=== PATIENT | female | born 1975 | race Caucasian/White ===

== ENCOUNTER 2023-05-01 18:26 | Emergency (ER) | payer BC ==
[2023-05-01] MEDS ORDERED: ONDANSETRON 4 MG (ODT) TAB ONE (18:59)
[2023-05-01] MEDS ORDERED: IBUPROFEN 200 MG TAB PO ONE (19:34)
[2023-05-01] MEDS ORDERED: IBUPROFEN 400 MG TAB ONE (19:34)
--- NOTE | 2023-05-01 20:41 | EDPHYS ---
Physician Documentation [facility] Name: Clarke Hatch Age: 47 yrs Sex: Female : 1975 Arrival Date: 05/01/2023 Time: 18:26 Bed 9 Private MD: ED Physician Angelo Johnson HPI: 05/01 20:41 This 47 yrs old Female presents to ER via Ambulatory with complaints of Flu Symptoms. ms3 20:41 39-year-old female with past medical history of hypothyroidism presents for sinus ms3 congestion, sore throat, body aches, headache, nausea that began this morning. Patient rates her discomfort a 7/10 and describes the pain as aching. Patient denies alleviating or inciting factors. Patient states she has friends with similar symptoms. 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 Flu vaccine is not up to date. - Social history:: Smoking status: Patient/guardian denies using tobacco, but has a distant history of tobacco abuse, Patient/guardian denies using alcohol, street drugs. ROS: 20:41 ENT: Negative for injury, pain, and discharge, Neck: Negative for injury, pain, and ms3 swelling, Cardiovascular: Negative for chest pain, and palpitations. 20:41 MS/Extremity: Negative for injury and deformity, Skin: Negative for injury, rash, and discoloration. 20:41 Constitutional: Positive for body aches, chills. 20:41 Respiratory: Positive for cough. 20:41 Abdomen/GI: Positive for nausea. 20:41 Neuro: Positive for headache. 20:41 All other systems are negative. Exam: 20:41 Constitutional: This is a well developed, well nourished patient who is awake, alert, ms3 and in no acute distress. Head/Face: Normocephalic, atraumatic. Neck: Trachea midline, no cervical lymphadenopathy. Supple, full range of motion without nuchal rigidity, or vertebral point tenderness. No Meningismus. Chest/axilla: Normal chest wall appearance and motion. Nontender with no deformity. Cardiovascular: Regular rate and rhythm with a normal S1 and S2. No gallops, murmurs, or rubs. Normal PMI, no JVD. No pulse deficits. Respiratory: Lungs have equal breath sounds bilaterally, clear to auscultation and percussion. No rales, rhonchi or wheezes noted. No increased work of breathing, no retractions or nasal flaring. Abdomen/GI: Soft, non-tender, with normal bowel sounds. No distension or tympany. No guarding or rebound. No evidence of tenderness throughout. Skin: Warm, dry with normal turgor. Normal color with no rashes, no lesions, and no evidence of cellulitis. MS/ Extremity: Pulses equal, no cyanosis. Neurovascular intact. Full, normal range of motion. Vital Signs: 19:16 BP 124 / 84; Pulse 87; Resp 17 S; Temp 99.2(O); Pulse Ox 98% on R/A; Weight 120.2 kg lg3 (R); Height 5 ft. 11 in. (R); 20:47 BP 112 / 74; Pulse 71; Resp 18; Pulse Ox 100% on R/A; mb9 19:16 Body Mass Index 36.96 (120.20 kg, 180.34 cm) lg3 MDM: 18:42 Patient medically screened. ms3 20:41 Differential diagnosis: flu, URI, COVID. Data reviewed: vital signs, nurses notes, lab ms3 test result(s), and as a result, I will discharge patient. I considered the following discharge prescriptions or medication management in the emergency department Medications were administered in the Emergency Department. See MAR. Test considered but Not performed: X-ray: Normal O2 sats, no hx of fever, mild cough. Counseling: I had a detailed discussion with the patient and/or guardian regarding: the historical points, exam findings, and any diagnostic results supporting the discharge/admit diagnosis, lab results, the need for outpatient follow up, to return to the emergency department if symptoms worsen or persist or if there are any questions or concerns that arise at home. Special discussion: I discussed with the patient/guardian in detail that at this point there is no indication for admission to the hospital. It is understood, however, that if the symptoms persist or worsen the patient needs to return immediately for re-evaluation. ED course: Discussed positive COVID results with patient. Patient to follow-up with primary care physician in 2 to 3 days. Patient understands and agrees with plan. All questions were answered. Return precautions discussed include worsening symptoms, or any other concerns. On reevaluation patient is alert and oriented x4, no apparent distress, nontoxic, ambulatory in the emergency department, speaking full sentences. 05/01 18:42 Order name: Flu; Complete Time: 20:11 ms3 05/01 18:42 Order name: COVID-19 SARS RT PCR; Complete Time: 20:40 ms3 Administered Medications: 19:04 Drug: Ondansetron PO 4 mg Route: PO; mb9 19:32 Follow up: Response: No adverse reaction mb9 19:32 Drug: Ibuprofen PO 600 mg Route: PO; mb9 19:32 Follow up: Response: No adverse reaction mb9 Disposition Summary: 05/01/23 20:40 Discharge Ordered Location: Home ms3 Condition: Stable ms3 Diagnosis - SARS-associated coronavirus as the cause of diseases classified elsewhere ms3 Followup: ms3 - With: Aneudy Red DO - When: 2 - 3 days - Reason: Recheck today's complaints Discharge Instructions: - COVID-19 ms3 - How to Protect Yourself and Others - [facility] (11/11/2021) ms3 - 10 Things You Can Do to Manage Your COVID-19 Symptoms at Home - [facility] (04/01/2021) ms3 - Viral Illness, Adult ms3 - Discharge Summary Sheet mb9 Forms: - Medication Reconciliation Form ms3 - Thank You Letter ms3 - Antibiotic Education ms3 - Prescription Opioid Use ms3 - Patient Portal Instructions ms3 - Leadership Thank You Letter ms3 - Work release form mb9 Signatures: Dispatcher [employer] Tata Morel RN RN lg3 Angelo Johnson DO DO ms3 Daniela Dumont RN RN mb9
--- NOTE | 2023-05-01 20:41 | ER ---
Nurse's Notes [facility] Name: Clarke Hatch Age: 47 yrs Sex: Female : 1975 Arrival Date: 05/01/2023 Time: 18:26 Bed 9 Private MD: Diagnosis: SARS-associated coronavirus as the cause of diseases classified elsewhere Presentation: 05/01 19:04 Initial Sepsis Screen:. mb9 19:04 Acuity: NAV 4 9 19:16 Chief complaint: Patient states: congestion, body aches, headache X2 days. Coronavirus lg3 screen: Client denies travel out of the [place] in the last 14 days. Client presents with at least one sign or symptom that may indicate coronavirus-19. Standard/surgical mask placed on the client. Ebola Screen: Patient negative for fever greater than or equal to 101.5 degrees Fahrenheit, and additional compatible Ebola Virus Disease symptoms No symptoms or risks identified at this time. Initial Sepsis Screen: Does the patient meet any 2 criteria? No. Patient's initial sepsis screen is negative. Does the patient have a suspected source of infection? No. Patient's initial sepsis screen is negative. Risk Assessment: Do you want to hurt yourself or someone else? Patient reports no desire to harm self or others. Onset of symptoms was April 30, 2023. 19:16 Method Of Arrival: Ambulatory lg3 Triage Assessment: 19:18 General: Appears in no apparent distress. uncomfortable, Behavior is calm, cooperative. lg3 Pain: Complains of pain in generalized body aches, headache. EENT: No deficits noted. Reports nasal congestion. Neuro: No deficits noted. Bright Agitation-Sedation Scale (RASS): 0 - Alert and Calm Level of Consciousness is awake, alert, obeys commands, Oriented to person, place, time, situation, Reports headache. Neuro: Reports dizziness. Cardiovascular: No deficits noted. Denies chest pain, shortness of breath, Capillary refill < 3 seconds Clubbing of nail beds is absent JVD is absent Patient's skin is warm and dry. Respiratory: No deficits noted. Airway is patent Respiratory effort is even, unlabored, Respiratory pattern is regular, symmetrical, Breath sounds are clear bilaterally. GI: No deficits noted. No signs and/or symptoms were reported involving the gastrointestinal system. Abdomen is round non-distended. : No deficits noted. No signs and/or symptoms were reported regarding the genitourinary system. Derm: No deficits noted. No signs and/or symptoms reported regarding the dermatologic system. Skin is intact, is healthy with good turgor, Skin is dry, Skin is normal, Skin temperature is warm. Musculoskeletal: No deficits noted. Circulation, motion, and sensation intact. Range of motion: intact in all extremities, Reports generalized weakness. 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 Flu vaccine is not up to date. - Social history:: Smoking status: Patient/guardian denies using tobacco, but has a distant history of tobacco abuse, Patient/guardian denies using alcohol, street drugs. Screenin:22 [facility] ED Fall Risk Assessment (Adult) History of falling in the last 3 months, lg3 including since admission No falls in past 3 months (0 pts). Abuse screen: Denies threats or abuse. Denies injuries from another. Nutritional screening: No deficits noted. Tuberculosis screening: No symptoms or risk factors identified. Assessment: 19:21 General: see triage assessment . lg3 20:31 Reassessment: No changes from previously documented assessment. Patient and/or family mb9 updated on plan of care and expected duration. Pain level reassessed. Patient is alert, oriented x 3, equal unlabored respirations, skin warm/dry/pink. Vital Signs: 19:16 BP 124 / 84; Pulse 87; Resp 17 S; Temp 99.2(O); Pulse Ox 98% on R/A; Weight 120.2 kg lg3 (R); Height 5 ft. 11 in. (R); 20:47 BP 112 / 74; Pulse 71; Resp 18; Pulse Ox 100% on R/A; mb9 19:16 Body Mass Index 36.96 (120.20 kg, 180.34 cm) lg3 ED Course: 18:34 Patient arrived in ED. rg4 18:35 Marnie Schumacher FNP-C is [facility]. kb 18:35 Angelo Johnson DO is Attending Physician. kb 18:44 Daniela Dumont, REBECCA is Primary Nurse. mb9 19:04 Triage completed. mb9 19:04 Arm band placed on. mb9 19:04 COVID-19 SARS RT PCR Sent. mb9 19:04 Flu Sent. mb9 19:22 Patient has correct armband on for positive identification. Placed in gown. Bed in low lg3 position. Call light in reach. Side rails up X 1. Client placed on continuous cardiac and pulse oximetry monitoring. NIBP monitoring applied. Door closed. Noise minimized. Warm blanket given. Family accompanied patient. 19:22 Patient maintains SpO2 saturation greater than 95% on room air. lg3 19:39 No provider procedures requiring assistance completed. mb9 20:40 Aneudy Red DO is Referral Physician. ms3 20:47 Patient did not have IV access during this emergency room visit. mb9 Administered Medications: 19:04 Drug: Ondansetron PO 4 mg Route: PO; mb9 19:32 Follow up: Response: No adverse reaction mb9 19:32 Drug: Ibuprofen PO 600 mg Route: PO; mb9 19:32 Follow up: Response: No adverse reaction mb9 Medication: 19:39 VIS not applicable for this client. mb9 Outcome: 20:40 Discharge ordered by MD. ms3 20:47 Discharged to home ambulatory. mb9 20:47 Condition: stable 20:47 Discharge instructions given to patient, Instructed on discharge instructions, follow up and referral plans. Demonstrated understanding of instructions, follow-up care. 20:47 Patient left the ED. mb9 Signatures: Marnie Schumacher FNP-C FNP-Bonny Soler rg4 Tata Olguin RN RN lg3 Angelo Johnson DO DO ms3 Daniela Dumont RN RN mb9
[2023-05-01 21:02] VITALS: TEMP 99.2
[2023-05-01 21:03] VITALS: BP 112/74; O2SAT 100
== END 2023-05-01 20:47 | disposition home or self-care (01) ==
LOC: ER 18:26
DX: U07.1 COVID-19 (principal); E03.9 Hypothyroidism, unspecified
CPT/HCPCS: 87635; 87804 ×2; 99284; Q0162

== ENCOUNTER → 2023-09-04 | Emergency (ER) | payer BC, MEDICARE ==
[~2023-09-04] MED LIST: AZITHROMYCIN 250 MG TAB ONE; HYDROCODONE/CHLORPHEN 5 ML/OSYR ONE; OSELTAMIVIR 75 MG CAP PO ONE
--- OUTSIDE RECORDS SUMMARY | 2023-09-04 11:41 | XMS REPORT | Continuity of Care Document ---
Author Name Unknown Address [address] [place] [address]. [address] [place] [address] [employer] Address [address] [place] [address]. [address] [place] [address] Care Team Providers Care Station Agent Name Role Phone LATISHA Attending Clinician Unavaila ble LATISHA Admitting Clinician Unavaila ble Payers Payer Name Policy Type Policy Number Effective Date Expirati on Date Source ENEDELIA JONSE FROM [facility] ([facility] [id number] Encounters Start Date/Time End Date/Time Encounter Type Admission Type Attending Clinicians Care Facility Care Department Encounter ID Source 2022-03-15 05:43:00 2022-03-15 05:43:00 Outpatient ALISIA JONES AOSM AOSM [id number] [facility] 2022-03-15 05:43:00 2022-03-15 05:43:00 Outpatient ALISIA SAAVEDRASM AOSM [id number] [facility]
[2023-09-04 13:09] LABS: SARS-CoV-2 Antigen Rapid Res Negative (Negative)
--- NOTE | 2023-09-04 14:11 | ER ---
Nurse's Notes [facility] Name: Clarke Hatch Age: 47 yrs Sex: Female : 1975 Arrival Date: 09/04/2023 Time: 11:38 Bed 12 Private MD: Diagnosis: Influenza due to other identified influenza virus with other respiratory manifestations-INFLUENZA B;Cough;Other malaise and fatigue Presentation: 09/04 12:08 Chief complaint: Patient states: Pt c/o cough, congestion, headache, body aches after tl4 being exposed to the flu. Pt states symptoms have gotten worse since Sunday. No relief with OTC Nydia or Xyzal. Coronavirus screen: Vaccine status: Patient reports being unvaccinated. congestion, cough unrelated to allergies, fatigue, headache, muscle pain, runny nose. Ebola Screen: Patient negative for fever greater than or equal to 101.5 degrees Fahrenheit, and additional compatible Ebola Virus Disease symptoms Patient denies exposure to infectious person. Patient denies travel to an Ebola-affected area in the 21 days before illness onset. No symptoms or risks identified at this time. Initial Sepsis Screen: Does the patient meet any 2 criteria? No. Patient's initial sepsis screen is negative. Does the patient have a suspected source of infection? No. Patient's initial sepsis screen is negative. Risk Assessment: Do you want to hurt yourself or someone else? Patient reports no desire to harm self or others. Onset of symptoms was August 30, 2023. 12:08 Method Of Arrival: Ambulatory tl4 12:08 Acuity: NAV 4 tl4 Triage Assessment: 12:14 General: Appears in no apparent distress. Behavior is calm, cooperative. Pain: tl4 Complains of pain in generalized body aches, headache. EENT: Reports nasal congestion nasal discharge. Neuro: No deficits noted. Cardiovascular: No deficits noted. Respiratory: Reports cough that is. GI: No deficits noted. No signs and/or symptoms were reported involving the gastrointestinal system. : No deficits noted. No signs and/or symptoms were reported regarding the genitourinary system. 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 - Social history:: Smoking status: Patient/guardian denies using tobacco, the patient reports quitting approximately 5 years ago. - Family history:: not pertinent. Screenin:15 [facility] ED Fall Risk Assessment (Adult) History of falling in the last 3 months, tl4 including since admission No falls in past 3 months (0 pts) Confusion or Disorientation No (0 pts) Intoxicated or Sedated No (0 pts) Impaired Gait No (0 pts) Mobility Assist Device Used No (0 pt) Altered Elimination No (0 pt) Score/Fall Risk Level 0 - 2 = Low Risk. Abuse screen: Denies threats or abuse. Denies injuries from another. Nutritional screening: No deficits noted. Tuberculosis screening: No symptoms or risk factors identified. Assessment: 12:15 Reassessment: No changes from previously documented assessment. Patient and/or family tl4 updated on plan of care and expected duration. Pain level reassessed. Patient is alert, oriented x 3, equal unlabored respirations, skin warm/dry/pink. Vital Signs: 12:08 BP 101 / 61; Pulse 79; Resp 18; Temp 98.2(O); Pulse Ox 99% on R/A; Weight 114.31 kg; tl4 Height 5 ft. 11 in. ; Pain 5/10; 12:08 Body Mass Index 35.15 (114.31 kg, 180.34 cm) tl4 12:08 Pain Scale: Adult tl4 Rox Coma Score: 13:51 Eye Response: spontaneous(4). Motor Response: obeys commands(6). Verbal Response: dudley oriented(5). Total: 15. ED Course: 11:41 Patient arrived in ED. mg5 11:46 Amaury Hartley MD is Attending Physician. dudley 11:53 Clarke Johnson is Primary Nurse. tl4 12:13 Triage completed. tl4 12:14 Arm band placed on Patient placed in an exam room, on a stretcher. tl4 12:16 Patient has correct armband on for positive identification. Bed in low position. Call tl4 light in reach. Side rails up X 1. Adult w/ patient. Provided Education on: ED process. 12:16 No provider procedures requiring assistance completed. tl4 12:35 Strep Sent. tl4 12:35 SARS RAPID Sent. tl4 12:35 Flu Sent. tl4 14:30 Patient did not have IV access during this emergency room visit. tl4 Administered Medications: 13:44 Drug: AZITHromycin PO 500 mg PO once Route: PO; tl4 14:27 Follow up: Response: No adverse reaction tl4 13:44 Drug: Oseltamivir PO 75 mg PO once Route: PO; tl4 14:26 Follow up: Response: No adverse reaction tl4 13:59 Drug: Tussionex Pennkinetic ER PO Suspension 5 ml PO once Route: PO; tl4 14:26 Follow up: Response: No adverse reaction tl4 Medication: 12:16 VIS not applicable for this client. tl4 Outcome: 14:10 Discharge ordered by . dudley 14:29 Discharged to home ambulatory, with family, tl4 14:29 Condition: stable 14:29 Discharge instructions given to patient, Instructed on discharge instructions, follow up and referral plans. medication usage, Demonstrated understanding of instructions, follow-up care, medications, 14:40 Patient left the ED. cm10 Signatures: Amaury Hartley MD MD cha Martinez, Clarissa RN RN cm10 Shanae Morrell mg5 Clarke Johnson tl4
--- NOTE | 2023-09-04 14:11 | EDPHYS ---
Physician Documentation [facility] Name: Clarke Hatch Age: 47 yrs Sex: Female : 1975 Arrival Date: 09/04/2023 Time: 11:38 Bed 12 Private MD: KOREY Physician Amaury Hartley HPI: 09/04 13:51 This 47 yrs old Female presents to ER via Ambulatory with complaints of Flu dudley Symptoms. 13:51 The patient or guardian reports airway noise, cough, difficulty breathing, flu dudley symptoms, arthralgias, low-grade fever, myalgias. Onset: The symptoms/episode began/occurred 3 day(s) ago. Modifying factors: The symptoms are alleviated by nothing. the symptoms are aggravated by activity. COUGH , CONGESTION BODY ACHES X 3. Associated signs and symptoms: Pertinent positives: fever, rhinorrhea, sore throat. The patient reports fever, that was measured at 102 degrees Fahrenheit. Modifying factors: there are no obvious modifying factors. Severity of symptoms: At their worst the symptoms were moderate in the emergency department the symptoms have improved mildly. Associated signs and symptoms: Pertinent positives: chills, cough. The patient has experienced similar episodes in the past, several times. 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 - Social history:: Smoking status: Patient/guardian denies using tobacco, the patient reports quitting approximately 5 years ago. - Family history:: not pertinent. ROS: 13:51 Constitutional: Negative for fever, chills, and weight loss, Eyes: Negative for injury, dudley pain, redness, and discharge, ENT: Negative for injury, pain, and discharge, Neck: Negative for injury, pain, and swelling, Cardiovascular: Negative for chest pain, palpitations, and edema, Abdomen/GI: Negative for abdominal pain, nausea, vomiting, diarrhea, and constipation, Back: Negative for injury and pain, : Negative for injury, bleeding, discharge, and swelling, MS/Extremity: Negative for injury and deformity, Skin: Negative for injury, rash, and discoloration, Neuro: Negative for headache, weakness, numbness, tingling, and seizure, Psych: Negative for depression, anxiety, suicide ideation, homicidal ideation, and hallucinations, Allergy/Immunology: Negative for hives, rash, and allergies, Endocrine: Negative for neck swelling, polydipsia, polyuria, polyphagia, and marked weight changes, 13:51 Respiratory: Positive for cough, Exam: 13:51 Constitutional: This is a well developed, well nourished patient who is awake, alert, dudley and in no acute distress. Head/Face: Normocephalic, atraumatic. Eyes: Pupils equal round and reactive to light, extra-ocular motions intact. Lids and lashes normal. Conjunctiva and sclera are non-icteric and not injected. Cornea within normal limits. Periorbital areas with no swelling, redness, or edema. ENT: Nares patent. No nasal discharge, no septal abnormalities noted. Tympanic membranes are normal and external auditory canals are clear. Oropharynx with no redness, swelling, or masses, exudates, or evidence of obstruction, uvula midline. Mucous membranes moist. Neck: Trachea midline, no thyromegaly or masses palpated, and no cervical lymphadenopathy. Supple, full range of motion without nuchal rigidity, or vertebral point tenderness. No Meningismus. Chest/axilla: Normal chest wall appearance and motion. Nontender with no deformity. No lesions are appreciated. Cardiovascular: Regular rate and rhythm with a normal S1 and S2. No gallops, murmurs, or rubs. Normal PMI, no JVD. No pulse deficits. Respiratory: Lungs have equal breath sounds bilaterally, clear to auscultation and percussion. No rales, rhonchi or wheezes noted. No increased work of breathing, no retractions or nasal flaring. Abdomen/GI: Soft, non-tender, with normal bowel sounds. No distension or tympany. No guarding or rebound. No evidence of tenderness throughout. Back: No spinal tenderness. No costovertebral tenderness. Full range of motion. Skin: Warm, dry with normal turgor. Normal color with no rashes, no lesions, and no evidence of cellulitis. MS/ Extremity: Pulses equal, no cyanosis. Neurovascular intact. Full, normal range of motion. Neuro: Awake and alert, GCS 15, oriented to person, place, time, and situation. Cranial nerves II-XII grossly intact. Motor strength 5/5 in all extremities. Sensory grossly intact. Cerebellar exam normal. Normal gait. Psych: Awake, alert, with orientation to person, place and time. Behavior, mood, and affect are within normal limits. 13:51 Musculoskeletal/extremity: ROM: no acute changes, Circulation is intact in all extremities. Sensation intact. Weight bearing: able to fully bear weight, DVT Exam: No signs of deep vein thrombosis. no pain, no swelling, no tenderness, negative Homans' sign noted on exam, no appreciated bluish discoloration, no erythema, no increased warmth, Vital Signs: 12:08 BP 101 / 61; Pulse 79; Resp 18; Temp 98.2(O); Pulse Ox 99% on R/A; Weight 114.31 kg; tl4 Height 5 ft. 11 in. ; Pain 5/10; 12:08 Body Mass Index 35.15 (114.31 kg, 180.34 cm) tl4 12:08 Pain Scale: Adult tl4 [place] Coma Score: 13:51 Eye Response: spontaneous(4). Motor Response: obeys commands(6). Verbal Response: [facility] oriented(5). Total: 15. MDM: 11:46 Patient medically screened. [facility] 14:07 Antibiotic administration: The patient is discharged and will get outpatient [facility] antibiotics, Tamiflu, Zithromax. Differential diagnosis: bronchitis, viral Infection, bacterial infection, URI, bronchitis, pneumonia. Differential Diagnosis sepsis, flu. Data reviewed: vital signs, nurses notes, lab test result(s), Flu: positive. Consideration of Admission/Observation Patient was admitted/placed on observation. Escalation of care including admission/observation considered. I considered the following discharge prescriptions or medication management in the emergency department Medications were administered in the Emergency Department. See MAR. Historians other than the Patient: Family Member: FAMILY. 09/04 11:46 Order name: Flu; Complete Time: 13:40 [facility] 09/04 11:46 Order name: SARS RAPID; Complete Time: 13:40 [facility] 09/04 11:46 Order name: Strep [facility] 09/04 13:10 Order name: Throat Culture EDMS Administered Medications: 13:44 Drug: AZITHromycin PO 500 mg PO once Route: PO; tl4 14:27 Follow up: Response: No adverse reaction tl4 13:44 Drug: Oseltamivir PO 75 mg PO once Route: PO; tl4 14:26 Follow up: Response: No adverse reaction tl4 13:59 Drug: Tussionex Pennkinetic ER PO Suspension 5 ml PO once Route: PO; tl4 14:26 Follow up: Response: No adverse reaction tl4 Disposition Summary: 09/04/23 14:10 Discharge Ordered Notes: Location: Home [facility] Problem: new [facility] Symptoms: have improved [facility] Condition: Stable [facility] Diagnosis - Influenza due to other identified influenza virus with other respiratory [facility] manifestations - INFLUENZA B - Cough [facility] - Other malaise and fatigue [facility] Followup: [facility] - With: Private Physician - When: 2 - 3 days - Reason: Recheck today's complaints, Continuance of care, Re-evaluation by your physician Discharge Instructions: - Discharge Summary Sheet [facility] - Influenza, Adult dudley - Upper Respiratory Infection, Adult dudley - Upper Respiratory Infection, Adult, [id number] dudley - Influenza, Adult, [id number] dudley - Cough, Adult, [id number] [facility] - Cough, Adult [facility] - Preventing Influenza, Adult [facility] Forms: - Work release form [facility] - Medication Reconciliation Form [facility] - Thank You Letter [facility] - Antibiotic Education [facility] - Prescription Opioid Use [facility] - Patient Portal Instructions [facility] - Leadership Thank You Letter [facility] Prescriptions: - Diflucan 150 mg Oral tablet - take 1 tablet ORAL route one time for 1 day; 3 tablet; Refills: 0, Product [facility] Selection Permitted - Tessalon Perles 100 mg Oral capsule - take 2 capsule ORAL route every 8 hours As needed; 30 capsule; Refills: 0, [facility] Product Selection Permitted - Medrol (Ezio) 4 mg Oral Tablets, Dose Pack - take 1 tablet ORAL route as directed - follow package instructions; 1 packet; [facility] Refills: 0, Product Selection Permitted - Guaifenesin AC 10-100 mg/5 mL Oral liquid - take 10 milliliters ORAL route every 6 hours As needed; 180 milliliter; [facility] Refills: 0, Product Selection Permitted - Zithromax 500 mg Oral tablet - take 1 tablet ORAL route once daily for 5 days; 5 tablet; Refills: 0, Product [facility] Selection Permitted Signatures: Dispatcher [employer] Amaury Burgess MD MD [facility] tl4
[2023-09-04 16:50] VITALS: BP 101/61; TEMP 98.2; O2SAT 99
== END ==
LOC: ER 11:38
DX: J10.1 Influenza due to other identified influenza virus with other respiratory manifestations (principal); R53.81 Other malaise; R53.83 Other fatigue; E03.9 Hypothyroidism, unspecified; Z11.52 Encounter for screening for COVID-19
CPT/HCPCS: 36415; 87070; 87081; 87804; 87811; 99283